=== PATIENT | female | born 1970 | race Caucasian/White ===

== ENCOUNTER 2016-09-30 13:55 | Outpatient (CLI) | END 2016-09-30 13:56 | disposition home or self-care (01) ==

== ENCOUNTER 2016-10-16 13:17 | Outpatient (CLI) | payer MEDICARE, MEDICAID | END 2016-10-16 13:18 | disposition home or self-care (01) | DX: M51.36 Other intervertebral disc degeneration, lumbar region (principal); M51.37 Other intervertebral disc degeneration, lumbosacral region; M25.551 Pain in right hip; M25.552 Pain in left hip ==

== ENCOUNTER 2017-07-15 12:27 | Emergency (ER) | payer MEDICARE, MEDICAID ==
[2017-07-15 12:53] VITALS: BP 112/70
--- NOTE | 2017-07-15 13:40 | ED Physician Documentation ---
PD HPI UPPER EXT INJURY - Stated complaint Stated Complaint: R PINKY LAC - Chief complaint Chief Complaint: Laceration - History obtained from History obtained from: Patient - History of Present Illness Location: Right, Finger (5th) Type of injury: Laceration Where injury occurred: Home Timing - onset: How many hours ago (1) Timing - duration: Hours (1) Timing - details: Abrupt onset Pain level max: 4 Pain level now: 3 Improved by: Rest Worsened by: Moving, Palpating Associated symptoms: No: Weakness, Numbness, Tingling, Swelling Contributing factors: No: Anticoagulated, Prior ortho surgery, Prosthetic joint Similar symptoms before: Has not had sx before Recently seen: Not recently seen - Additonal information Additional information: khushi dish broke, causing a laceration. Last Td 2012 Review of Systems : denies: Now EGA Neurologic: denies: Focal weakness, Numbness PD PAST MEDICAL HISTORY - Past Medical History Past Medical History: Yes Psych: Anxiety, Post traumatic stress disorder - Past Surgical History Past Surgical History: No General: Appendectomy /METAL BUMPER: section - Present Medications Home Medications: Ambulatory Orders Medication Instructions Recorded Confirmed No Known Home Medications [No 06/14/16 07/15/17 Known Home Medications] - Allergies Allergies/Adverse Reactions: Allergies Allergy/AdvReac Type Severity Reaction Status Date / Time No Known Drug Allergies Allergy Verified 09/10/14 16:23 - Social History Does the pt smoke?: No Smoking Status: Never smoker Does the pt drink ETOH?: No Does the pt have substance abuse?: No - Immunizations Immunizations are current?: Yes Immunizations: TDAP >10years/unknown - POLST Patient has POLST: No PD ED PE NORMAL - Vitals Vital signs reviewed: Yes - General General: Alert and oriented X 3 - Extremities Extremities: Other (R 5th digit - NVI, 1cm, linear laceration. tendon intact. ) - Neuro Neuro: Alert and oriented X 3 Results - Vitals Vitals: Vital Signs - 24 hr 07/15/17 12:49 Temperature 36.6 C Heart Rate 77 Respiratory 18 Rate Blood Pressure 112/70 O2 Saturation 100 Oxygen O2 Source Room air Procedures - Laceration (location) R 5th digit Length in cm: 1 Wound type: Linear, Into subcut fat, Clean Neurovascular status: Sensory intact, Motor intact, Vascular intact Tendon involvement: Tendon intact. No: Tendon Injury Anesthesia: Lidocaine 2% (transthecal block) Wound Preparation: Irrigated copiously NS, Wound explored, To the base. No: FB identified, FB removed Skin layer closure: Dermabond Other: Patient tolerated well, No complications, Neurovascular intact, Dressing applied (splint), Tetanus UTD Complexity: Simple PD MEDICAL DECISION MAKING - ED course Complexity details: considered differential, d/w patient ED course: Patient presents to the emergency department with a laceration to the right 5th digit. This was repaired with Dermabond. Tolerated well. Placed in a finger splint. Tdap given. Warnings of infection and instructions on wound care given at bedside. Also counseled on how to minimize scarring. Patient counseled regarding signs and symptoms for which I believe and urgent re- evaluation would be necessary. Patient with good understanding of and agreement to plan and is comfortable going home at this time This document was made in part using voice recognition software. While efforts are made to proofread this document, sound alike and grammatical errors may occur. Neurovascularly intact. No tendon injury. No foreign body Departure - Departure Disposition: 01 Home, Self Care Clinical Impression: Finger laceration Qualifiers: Encounter type: initial encounter Finger: little finger Damage to nail status: without damage Foreign body presence: without foreign body Laterality: right Qualified Code(s): S61.216A - Laceration without foreign body of right little finger without damage to nail, initial encounter Condition: Good Instructions: ED Laceration Hand Follow-Up: Shalini Lewis MD [Primary Care Provider] - As Needed Comments: wear the splint for the next 5 days. Return if you worsen. Keep the wound clean. The glue will dissolve on it's own. Discharge Date/Time: 07/15/17 14:18
[2017-07-15] MEDS ORDERED: LIDOCAINE 2% 10 ML MDV SUBQ STA (13:44)
[2017-07-15] MEDS ORDERED: LIDOCAINE 2% 10 ML MDV ONE (13:52)
== END 2017-07-15 14:18 | disposition home or self-care (01) ==
LOC: ED 12:27
DX: S61.216A Laceration without foreign body of right little finger without damage to nail, initial encounter (principal); W25.XXXA Contact with sharp glass, initial encounter
CPT/HCPCS: 12001; 99282

== ENCOUNTER 2019-03-08 10:45 | Outpatient (CLI) | payer MEDICARE, MEDICAID ==
--- NOTE | 2019-03-08 11:33 | XRAY Report ---
Reason: CERVICALGIA Procedure Date: 03/08/2019 Accession Number: [id number] / [id number] Procedure: XRN - Cervical Spine Complete CPT Code: FULL RESULT: EXAM: CERVICAL SPINE RADIOGRAPHY EXAM DATE: 03/08/2019 11:08 AM. CLINICAL HISTORY: CERVICALGIA. COMPARISONS: None. TECHNIQUE: 5 views. FINDINGS: Alignment: No scoliosis. Loss of normal lordosis which may be functional. Bones: The cervical vertebral bodies and posterior elements are well-visualized from the skull base through C7-T1. No fractures or bone lesions. Disks: Normal. Disk heights are maintained. Facets: No degenerative disease. Neural Foramina: The neural foramina have bony patency bilaterally. Soft Tissues: Normal. No prevertebral soft tissue swelling. The visualized lung apices are clear. IMPRESSION: 1. Loss of normal cervical lordosis which may be functional. 2. Otherwise negative examination. RADIA
== END 2019-03-08 10:46 | disposition home or self-care (01) ==
LOC: DI.N 10:45
PROVIDERS: ATTEND Internal Medicine
DX: M54.2 Cervicalgia (principal)
CPT/HCPCS: 72050

== ENCOUNTER 2019-04-12 17:41 | Outpatient (CLI) | payer MEDICARE, MEDICAID ==
--- NOTE | 2019-04-13 10:30 | MRI Report ---
Reason: NECK PAIN Procedure Date: 04/12/2019 Accession Number: [id number] / [id number] Procedure: MRI - Cervical Spine W/O CPT Code: FULL RESULT: EXAM: MRI CERVICAL SPINE WITHOUT CONTRAST EXAM DATE: 04/12/2019 07:15 PM. CLINICAL HISTORY: Neck pain. Fall 6 months ago. Neck pain, numbness, and tightness when turning head. COMPARISONS: CERVICAL SPINE COMPLETE 03/08/2019 11:08 AM. TECHNIQUE: Multiplanar, multisequence T1-weighted and fluid-sensitive sequences of the cervical spine without contrast. Other: None. FINDINGS: Neurologic Structures: The visualized posterior fossa structures are unremarkable. No signal abnormality in the visualized spinal cord. Alignment: Minimal, 1.5 mm, spondylolisthesis is seen at C3-C4. Bone Marrow: No gross fractures or bone lesions. No marrow edema. Interspace Levels/Facets: C1-C2: Unremarkable on sagittal series. C2-C3: Unremarkable. C3-C4: Mild left-sided degenerative facet change. Minimal spondylolisthesis. No stenosis. C4-C5: Minimal dorsal and ventral disk bulge is seen. Tiny dorsal annular fissure. Effacement of the ventral thecal sac. Mild canal narrowing. C5-C6: Minimal broad-based dorsal and ventral disk bulge is seen. Effacement of the ventral thecal sac is noted. Mild central canal stenosis. C6-C7: Minimal lobular dorsal disk bulge is seen. Effacement of the ventral thecal sac is noted. Mild canal stenosis. C7-T1: Unremarkable. Musculature: Normal. No edema or fatty atrophy. Other: The paravertebral and prevertebral soft tissues are normal. IMPRESSION: 1. Normal appearance to the cervical spinal cord. 2. C3-C4: Mild left-sided degenerative facet change. Minimal spondylolisthesis. No stenosis. 3. C4-C5: Minimal degenerative disk change. Mild canal narrowing. 4. C5-C6, C6-C7: Minimal degenerative disk change. Mild central canal stenosis. RADIA
== END 2019-04-12 17:42 | disposition home or self-care (01) ==
LOC: DI 17:41
PROVIDERS: ATTEND Orthopaedic Surgery
DX: S16.1XXA Strain of muscle, fascia and tendon at neck level, initial encounter (principal); M50.31 Other cervical disc degeneration, high cervical region; M48.02 Spinal stenosis, cervical region
CPT/HCPCS: 72141

== ENCOUNTER 2021-04-11 08:00 | Outpatient (CLI) | payer MEDICARE, MEDICAID ==
--- NOTE | 2021-04-14 06:19 | XRAY Report ---
PROCEDURE: Shoulder 2 View RT INDICATIONS: SHOULDER JOINT PAIN, RIGHT TECHNIQUE: 2 views of the shoulder were acquired. COMPARISON: None. FINDINGS: Bones: No fractures or dislocations. No suspicious bony lesions. Visualized ribs appear intact. Soft tissues: No suspicious soft tissue calcifications. IMPRESSION: Unremarkable right shoulder radiographs Reviewed by: Brandon Massey MD on 04/11/2021 6:04 PM AKDT Approved by: Brandon Massey MD on 04/11/2021 6:04 PM AKDT Station ID: [id number]
== END 2021-04-11 23:59 | disposition home or self-care (01) ==
LOC: DI.N 08:00
PROVIDERS: ATTEND Family Medicine
DX: M25.511 Pain in right shoulder (principal)

== ENCOUNTER 2021-06-02 08:52 | Outpatient (CLI) | payer MEDICARE, MEDICAID ==
--- NOTE | 2021-06-02 17:22 | MRI Report ---
PROCEDURE: Shoulder RT W/O INDICATIONS: RIGHT ROTATOR CUFF SYNDROME TECHNIQUE: Noncontrast oblique coronal T2 fast spin echo with fat saturation, oblique sagittal T1 spin echo and T2 fast spin echo with fat saturation, axial T1 spin echo and T2 fast spin echo with fat saturation t hrough the shoulder. COMPARISON: None. FINDINGS: Image quality: Excellent. Rotator cuff: There is tendinosis and low-grade articular and bursal surface partial-thickness tear i nvolving distal supraspinatus at its insertion on humeral head extending to musculotendinous junction . Distal infraspinatus tendinosis is seen. Tendinosis and low-grade intrasubstance partial thickness tear involving distal subscapularis is seen. No full-thickness rotator cuff tendon rupture. Mild supr aspinatus muscle atrophy is seen on sagittal images. Bones and bursae: No bone marrow contusions or fractures. Moderate acromioclavicular joint osteoarth ritic changes are seen. Mild to moderate glenohumeral joint osteoarthritic changes also noted. No sig nificant joint effusion or subacromial subdeltoid bursal fluid. Capsule and soft tissues: There is signal abnormality involving superior anterior labrum at 12 to 1:0 0 position concerning for subtle superior anterior labral tear. Subtle signal abnormality involving a nterior inferior labrum at 5 to 6:00 position is also seen. The long head of the biceps tendinosis is seen. The rotator interval appears normal, without fibrosis. The coracohumeral ligament is normal i n thickness. IMPRESSION: 1. Tendinosis and low-grade articular and bursal surface partial-thickness tear involving distal supr aspinatus extending to musculotendinous junction. Mild supraspinatus muscle atrophy. 2. Distal infraspinatus and subscapularis tendinosis and low-grade intrasubstance partial thickness t ear involving distal subscapularis. 3. Proximal intra-articular portion of long head of biceps tendinosis. 4. Moderate acromioclavicular joint osteoarthritis and mild to moderate glenohumeral joint osteoarthr itis. 5. Finding is concerning for subtle superior anterior labral tear at 12 to 1:00 position an anterior inferior labral tear at 5 to 6:00 position. Reviewed by: Roman Medina MD on 06/02/2021 5:21 PM PDT Approved by: Roman Medina MD on 06/02/2021 5:21 PM PDT Station ID: [id number]
== END 2021-06-02 08:53 | disposition home or self-care (01) ==
LOC: DI 08:52
PROVIDERS: ATTEND Physician Assistant
DX: M75.111 Incomplete rotator cuff tear or rupture of right shoulder, not specified as traumatic (principal); M19.011 Primary osteoarthritis, right shoulder; M67.921 Unspecified disorder of synovium and tendon, right upper arm

== ENCOUNTER 2021-06-25 09:02 | Outpatient (CLI) | payer MEDICARE, MEDICAID ==
--- NOTE | 2021-06-25 13:00 | XRAY Report ---
PROCEDURE: Cervical Spine 2 View INDICATIONS: RIGHT SHOULDER PAIN TECHNIQUE: 3 view(s) of the cervical spine were acquired. COMPARISON: None. FINDINGS: No acute fracture. Straightening of the normal lordotic curvature. Scattered multilevel endplate sp urring and diffuse facet arthropathy. Mild narrowing of the T1-T2 disc space. Minimal narrowing of th e C4-C5 disc space. IMPRESSION: Straightening of the normal lordotic curvature. Mild spondylitic changes as above. Reviewed by: Sen Delgado MD on 06/25/2021 12:58 PM PDT Approved by: Sen Delgado MD on 06/25/2021 12:58 PM PDT Station ID: [id number]
--- NOTE | 2021-06-25 16:05 | XRAY Report ---
PROCEDURE: Shoulder 3 View RT INDICATIONS: RIGHT SHOULDER PAIN TECHNIQUE: 4 views of the shoulder were acquired. COMPARISON: None. FINDINGS: Bones: No fractures or dislocations. No suspicious bony lesions. Mild glenohumeral joint degenerati ve change. Visualized ribs appear intact. Soft tissues: No suspicious soft tissue calcifications. IMPRESSION: Mild glenohumeral joint degenerative change. No evidence acute bony abnormality of the r ight shoulder. If clinical suspicion and/or symptoms persist, further assessment with repeat plain films or advanced imaging (e.g., CT, MRI, or bone scan) may be helpful for further assessment. Reviewed by: Oliver Mejia MD on 06/25/2021 4:03 PM PDT Approved by: Oliver Mejia MD on 06/25/2021 4:03 PM PDT Station ID: [id number]
== END 2021-06-25 23:59 | disposition home or self-care (01) ==
LOC: DI.N 09:02
PROVIDERS: ATTEND Physician Assistant
DX: M19.011 Primary osteoarthritis, right shoulder (principal); M47.812 Spondylosis without myelopathy or radiculopathy, cervical region

== ENCOUNTER 2023-01-28 16:58 | Emergency (ER) | payer MEDICARE, MEDICAID ==
--- NOTE | 2023-01-28 17:30 | ED Physician Documentation ---
History of Present Illness - Stated complaint Stated Complaint: ABD PX/NAUSEA - Chief complaint Chief Complaint: Abd Pain - History obtained from History obtained from: Patient - History of Present Illness Timing: How many days ago (2) Pain level max: 6 Pain level now: 5 - Additonal information Additional information: 52-year-old female presents to the emergency department complaining of abdominal pain for the past 2 days. Decreased appetite. Some nausea but no vomiting. No diarrhea or constipation. Patient states that the pain is mainly in the left lower quadrant but does go to the mid abdomen as well. She states that she has had a in the past as well as an appendectomy. Nothing seems to really make this better or worse. Has not had similar symptoms previously. She was seen at the walk-in clinic today and sent here for further evaluation. 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 - Present Medications Home Medications: Ambulatory Orders Medication Instructions Recorded Confirmed Amox/Clav 875/125 [Augmentin] 1 each PO Q8H #30 tablet 01/28/23 Ondansetron Odt [Zofran] 4 mg TL Q6H PRN #10 tablet 01/28/23 - Allergies Allergies/Adverse Reactions: Allergies Allergy/AdvReac Type Severity Reaction Status Date / Time No Known Drug Allergies Allergy Verified 01/28/23 17:07 - Social History Does the pt smoke?: No Smoking Status: Never smoker Does the pt drink ETOH?: No Does the pt have substance abuse?: No - Immunizations Immunizations are current?: Yes Immunizations: TDAP >10years/unknown - POLST Patient has POLST: No PD ED PE NORMAL - Vitals Vital signs reviewed: Yes - General General: Alert and oriented X 3, No acute distress - HEENT HEENT: PERRL, Moist mucous membranes - Neck Neck: Supple, no meningeal sign - Cardiac Cardiac: RRR, Strong equal pulses - Respiratory Respiratory: No respiratory distress, Clear bilaterally - Abdomen Abdomen: Soft, Non distended, Other (TTP LLQ, no peritoneal signs. ) - Back Back: No CVA TTP, No spinal TTP - Derm Derm: Warm and dry - Extremities Extremities: No edema, No calf tenderness / cord - Neuro Neuro: Alert and oriented X 3 - Psych Psych: Normal mood, Normal affect Results - Vitals Vitals: Vital Signs - 24 hr 01/28/23 01/28/23 17:05 19:35 Temperature 36.9 C Heart Rate 80 70 Respiratory 16 18 Rate Blood Pressure 136/76 H 119/76 O2 Saturation 98 97 Oxygen O2 Source Room air - Labs Labs: Laboratory Tests 01/28/23 01/28/23 01/28/23 17:44 17:44 17:50 WBC 7.4 RBC 4.40 Hgb 13.0 Hct 39.5 MCV 89.8 MCH 29.5 MCHC 32.9 RDW 12.5 Plt Count 184 MPV 10.4 Neut # (Auto) 5.7 Lymph # (Auto) 1.2 L Saunders # (Auto) 0.5 Eos # (Auto) 0.0 Baso # (Auto) 0.0 Absolute Nucleated RBC 0.00 Nucleated RBC % 0.0 Sodium 136 Potassium 3.5 Chloride 99 L Carbon Dioxide 25 Anion Gap 12.0 BUN 8 Creatinine 0.6 Estimated GFR (MDRD) 105 Glucose 99 Calcium 9.2 Total Bilirubin 0.9 AST 24 ALT 21 Alkaline Phosphatase 39 L Total Protein 7.9 Albumin 4.4 Globulin 3.5 Albumin/Globulin Ratio 1.3 Lipase 41 Urine Color YELLOW Urine Clarity HAZY Urine pH 6.0 Ur Specific [place] <=1.005 Urine Protein NEGATIVE Urine Glucose (UA) NEGATIVE Urine Ketones 15 H Urine Occult Blood NEGATIVE Urine Nitrite NEGATIVE Urine Bilirubin NEGATIVE Urine Urobilinogen 0.2 (NORMAL) Ur Leukocyte Esterase MODERATE H Urine RBC 0-5 Urine WBC 11-25 H Ur Squamous Epith Cells MOD Squamous H Urine Bacteria Moderate H Ur Microscopic Review INDICATED Urine Culture Comments NOT INDICATED Urine HCG, Qual 01/28/23 17:50 WBC RBC Hgb Hct MCV MCH MCHC RDW Plt Count MPV Neut # (Auto) Lymph # (Auto) Saunders # (Auto) Eos # (Auto) Baso # (Auto) Absolute Nucleated RBC Nucleated RBC % Sodium Potassium Chloride Carbon Dioxide Anion Gap BUN Creatinine Estimated GFR (MDRD) Glucose Calcium Total Bilirubin AST ALT Alkaline Phosphatase Total Protein Albumin Globulin Albumin/Globulin Ratio Lipase Urine Color Urine Clarity Urine pH Ur Specific [place] Urine Protein Urine Glucose (UA) Urine Ketones Urine Occult Blood Urine Nitrite Urine Bilirubin Urine Urobilinogen Ur Leukocyte Esterase Urine RBC Urine WBC Ur Squamous Epith Cells Urine Bacteria Ur Microscopic Review Urine Culture Comments Urine HCG, Qual NEGATIVE - Rads (name of study) ct abd/pelvis Relevant Findings:: Final report received, See rad report PD Medical Decision Making - ED course Complexity details: reviewed results, re-evaluated patient, considered differential, d/w patient ED course: Patient with acute diverticulitis on CT scan. White blood cell count is normal. Discussed risks and benefits of antibiotics. Patient elects to take antibiotics at this time. I think this is reasonable in her case. Patient is well-appearing, nontoxic. Afebrile. Has never had diverticulitis before. Recommend colonoscopy after treatment. Patient will follow-up with her doctor for further care. Patient counseled regarding signs and symptoms for which I believe and urgent re-evaluation would be necessary. Patient with good understanding of and agreement to plan and is comfortable going home at this time This document was made in part using voice recognition software. While efforts are made to proofread this document, sound alike and grammatical errors may occur. Departure - Departure Disposition: 01 Home, Self Care Clinical Impression: Diverticulitis Condition: Good Instructions: ED Diverticulitis Follow-Up: Antonino Negron MD [Primary Care Provider] - Within 1 week Prescriptions: Amox/Clav 875/125 [Augmentin] 1 each PO Q8H #30 tablet Ondansetron Odt [Zofran] 4 mg TL Q6H PRN #10 tablet PRN Reason: Nausea / Vomiting Comments: Your prescriptions were sent to [facility] in [place]. Please take all antibiotics until gone. Please follow-up with your doctor for further care. Please return if you worsen. You have diverticulitis tonight, this is an infection/inflammation in the colon. It is recommended that you have a colonoscopy after completion of treatment. Your doctor can order this for you. You also appear to have some fatty infiltration in your liver, please follow-up with your doctor for further care. EXAM: [id number] CT/ABPEW ([id number]) PROCEDURE: ABDOMEN/PELVIS W INDICATIONS: LLQ abd pain CONTRAST: 100ml omni 300 TECHNIQUE: After the administration of IV contrast, 5 mm thick sections acquired from the diaphragms to the symphysis. 5 mm thick coronal and sagittal reformats were acquired. For radiation dose reduction, the following was used: automated exposure control, adjustment of mA and/or kV according to patient size. COMPARISON: None. FINDINGS: Image quality: Excellent. Lung bases and heart: Unremarkable. Liver: Diffuse fatty liver infiltration can be seen. The liver demonstrates normal size and demonstrates no suspicious lesions. Gallbladder and biliary tree: Within normal limits. Spleen: No splenomegaly. Pancreas: No pancreatic ductal dilation. Adrenals: No adrenal nodule. Kidneys and ureters: No hydronephrosis. No renal cystic lesion which requires follow up. No solid mass. Bowel and peritoneum: There is focal wall thickening and inflammatory change seen involving the distal descending colon and the proximal sigmoid colon. Diverticula formation can be seen within this region. No findings of perforation or abscess are seen. No significant additional colonic abnormality is seen. No dilated loops of small bowel are seen. Apparent prior appendectomy. No significant gastric abnormality is seen. Lymph nodes: No central or retroperitoneal adenopathy. Vessels: No infrarenal aortic aneurysm. PELVIS Reproductive organs: The uterus demonstrates an unremarkable appearance for age. No adnexal masses are seen. Sterilization clips can be seen on both sides. Bladder: No abnormal wall thickening, accounting for underdistension. Pelvic lymph nodes: No pelvic adenopathy by size criteria. Bones: No aggressive osseous abnormality. Other: No significant ventral or inguinal hernia. IMPRESSION: Distal colonic/proximal sigmoid diverticulitis is seen, without findings of perforation or abscess. A colonoscopy is recommended for further evaluation, following treatment of the patient's current clinical episode, for evaluation of a potential underlying mass. Additional findings: Fatty liver infiltration Apparent prior appendectomy Sterilization clips Discharge Date/Time: 01/28/23 19:35
[2023-01-28 17:48] LABS: BASOPHILS % (AUTO) 0.1 %; EOSINOPHILS % (AUTO) 0.4 %; HCT - HEMATOCRIT 39.5 % (37.0-47.0); LYMPHOCYTES # (AUTO) 1.2 10^3/uL (1.5-3.5); LYMPHOCYTES % (AUTO) 16.6 %; MEAN CORPUSCULAR HEMOGLOBIN 29.5 pg (27.0-31.0); MEAN CORPUSCULAR HGB CONC 32.9 g/dL (32.0-36.0); MEAN CORPUSCULAR VOLUME 89.8 fL (81.0-99.0); MEAN PLATELET VOLUME 10.4 fL (7.9-10.8); MONOCYTES # (AUTO) 0.5 10^3/uL (0.0-1.0); MONOCYTES % (AUTO) 6.1 %; NEUTROPHILS # (AUTO) 5.7 10^3/uL (1.5-6.6); NEUTROPHILS % (AUTO) 76.5 %; PLT - PLATELET COUNT 184 10^3/uL (130-450); RED CELL DISTRIBUTION WIDTH 12.5 % (12.0-15.0); WHITE BLOOD COUNT 7.4 x10^3/uL (4.8-10.8)
[2023-01-28 17:59] LABS: BILIRUBIN,URINE NEGATIVE (NEGATIVE); GLUCOSE, URINE (UA) NEGATIVE (NEGATIVE); KETONES,URINE (UA) 15 mg/dL (NEGATIVE); LEUKOCYTE ESTERASE, URINE MODERATE (NEGATIVE); NITRITE,URINE NEGATIVE (NEGATIVE); OCCULT BLOOD,URINE NEGATIVE (NEGATIVE); PROTEIN,URINE NEGATIVE (NEGATIVE); UROBILINOGEN,URINE 0.2 (NORMAL) E.U./dL (NORMAL)
[2023-01-28 18:01] LABS: CLARITY,URINE HAZY (CLEAR); HCG UR QUAL NEGATIVE
[2023-01-28 18:01] LABS: ALBUMIN 4.4 g/dL (3.2-5.5); ALBUMIN/GLOBULIN RATIO 1.3 (1.0-2.2); BILIRUBIN,TOTAL 0.9 mg/dL (0.2-1.0); CALCIUM 9.2 mg/dL (8.5-10.3); CREATININE 0.6 mg/dL (0.4-1.0); POTASSIUM 3.5 mmol/L (3.5-5.0); TOTAL PROTEIN 7.9 g/dL (6.7-8.2)
[2023-01-28 18:06] LABS: BACTERIA,URINE Moderate /HPF (None Seen); RBC,URINE 0-5 /HPF (0-5); SQUAMOUS EPITHELIAL CELL,UR MOD Squamous (<= Few)
[2023-01-28] MEDS ORDERED: iohexoL-300 100 ML VIAL ONE (18:19)
[2023-01-28] MEDS ORDERED: iohexoL-300 100 ML VIAL IVP ONE (18:39)
--- NOTE | 2023-01-28 18:47 | CT Report ---
PROCEDURE: ABDOMEN/PELVIS W INDICATIONS: LLQ abd pain CONTRAST: 100ml omni 300 TECHNIQUE: After the administration of IV contrast, 5 mm thick sections acquired from the diaphragms to the symp hysis. 5 mm thick coronal and sagittal reformats were acquired. For radiation dose reduction, the f ollowing was used: automated exposure control, adjustment of mA and/or kV according to patient size. COMPARISON: None. FINDINGS: Image quality: Excellent. Lung bases and heart: Unremarkable. Liver: Diffuse fatty liver infiltration can be seen. The liver demonstrates normal size and demonst rates no suspicious lesions. Gallbladder and biliary tree: Within normal limits. Spleen: No splenomegaly. Pancreas: No pancreatic ductal dilation. Adrenals: No adrenal nodule. Kidneys and ureters: No hydronephrosis. No renal cystic lesion which requires follow up. No solid mas s. Bowel and peritoneum: There is focal wall thickening and inflammatory change seen involving the dista l descending colon and the proximal sigmoid colon. Diverticula formation can be seen within this dread on. No findings of perforation or abscess are seen. No significant additional colonic abnormality is seen. No dilated loops of small bowel are seen. Apparent prior appendectomy. No significant gastric abnormality is seen. Lymph nodes: No central or retroperitoneal adenopathy. Vessels: No infrarenal aortic aneurysm. PELVIS Reproductive organs: The uterus demonstrates an unremarkable appearance for age. No adnexal masses ar e seen. Sterilization clips can be seen on both sides. Bladder: No abnormal wall thickening, accounting for underdistension. Pelvic lymph nodes: No pelvic adenopathy by size criteria. Bones: No aggressive osseous abnormality. Other: No significant ventral or inguinal hernia. IMPRESSION: Distal colonic/proximal sigmoid diverticulitis is seen, without findings of perforation or abscess. A colonoscopy is recommended for further evaluation, following treatment of the patient's current cli nical episode, for evaluation of a potential underlying mass. Additional findings: Fatty liver infiltration Apparent prior appendectomy Sterilization clips Reviewed by: Mike Cunningham MD on 01/28/2023 5:46 PM AKDT Approved by: Mike Cunningham MD on 01/28/2023 5:46 PM AKDT Station ID: [id number]
[2023-01-28] MEDS ORDERED: AMOX/CLAV 875 MG/125 MG TABLET PO STA (19:06)
[2023-01-28] MEDS ORDERED: ONDANSETRON 4 MG/2 ML VIAL IVP STA (19:14)
[2023-01-28 19:35] VITALS: BP 119/76
== END 2023-01-28 19:35 | disposition home or self-care (01) ==
LOC: ED 16:58
DX: K57.32 Diverticulitis of large intestine without perforation or abscess without bleeding (principal)
CPT/HCPCS: 36415; 74177; 80053; 81001; 81025; 83690; 85025; 96374; 99283; 99284; A9270; Q9967; 81003; 87086

== ENCOUNTER 2023-08-11 09:36 | Outpatient (CLI) | payer MEDICARE, MEDICAID | END 2023-08-11 09:37 | disposition short-term general hospital (02) | LOC: EMS 09:36 | PROVIDERS: ATTEND Emergency Medicine | DX: R10.32 Left lower quadrant pain (principal); R10.31 Right lower quadrant pain; R50.9 Fever, unspecified; R11.0 Nausea | CPT/HCPCS: A0425; A0427 ==